=== PATIENT | female | born 1995 | race Two or more races ===

== ENCOUNTER 2017-05-06 21:06 | Emergency (ER) | payer MEDICAID ==
--- NOTE | 2017-05-06 22:10 | ER Document Report ---
ED General - General Chief Complaint: Vag Bleeding, +preg <12wks Stated Complaint: VAGINAL BLEEDING,LOWER ABDOMINAL PAIN Time Seen by Provider: 05/06/17 21:59 - HPI Notes: Patient is a 22-year-old female who presents to the ED approximately 5-1/ 2 weeks complaining of intermittent pelvic cramping and spotting. Patient states that she has been cramping for about a week and began spotting 3 days ago. Patient states that she did have an ectopic in the past. Patient is still eating and drinking without difficulties. She is urinating normally and having normal bowel movements. Patient states that she has not noticed any other vaginal discharge or odor. Patient was evaluated at the health department about a week ago when she found out she is . She denies any drug allergies. Patient denies any other significant past medical history. Denies any headache, fever, neck pain, URI, sore throat, chest pain, palpitations, syncope, cough, shortness of breath, wheeze, dyspnea, nausea/ vomiting/diarrhea, urinary retention, dysuria, hematuria, back pain, loss of control of bowel or bladder, numbness/tingling, saddle anesthesia, muscle paralysis/weakness, or rash. Patient currently has no cramping or abd pain. - Related Data Allergies/Adverse Reactions: No Known Allergies Allergy (Unverified 05/06/17 22:16) Past Medical History - Social History Smoking Status: Never Smoker Family History: Reviewed & Not Pertinent Review of Systems - Review of Systems -: Yes All other systems reviewed and negative Physical Exam - Vital signs Vitals: Temp Pulse Resp BP Pulse Ox 98.7 F 80 20 118/53 L 100 05/06/17 21:14 05/06/17 21:14 05/06/17 21:14 05/06/17 21:14 05/06/17 21:14 - Notes Notes: PHYSICAL EXAMINATION: GENERAL: Well-appearing, well-nourished and in no acute distress. HEAD: Atraumatic, normocephalic. EYES: Pupils equal round and reactive to light, extraocular movements intact, sclera anicteric, conjunctiva are normal. ENT: Nares patent and without discharge. oropharynx clear without exudates. No tonsilar hypertrophy or erythema. Moist mucous membranes. NECK: Normal range of motion, supple without lymphadenopathy LUNGS: Breath sounds clear to auscultation bilaterally and equal. No wheezes rales or rhonchi. HEART: Regular rate and rhythm without murmurs, rubs, gallops. ABDOMEN: Soft, nontender, nondistended abdomen. No guarding, no rebound. No masses appreciated. Normal bowel sounds present. No CVA tenderness bilaterally. Musculoskeletal: FROM to passive/active. Strength 5+/5. Extremities: No cyanosis, clubbing, or edema b/l. Peripheral pulses 2+. Capillary refill less than 3 seconds. NEUROLOGICAL: Normal speech, normal gait. Normal sensory, motor exams PSYCH: Normal mood, normal affect. SKIN: Warm, Dry, normal turgor, no rashes or lesions noted. Course - Re-evaluation Re-evalutation: 05/07/17 01:24 Patient is an afebrile, well-hydrated, 22-year-old female who presents the ED with vaginal bleeding and early . Vitals are acceptable. PE is otherwise unremarkable. CBC, CMP, urinalysis were unremarkable for any acute pathology. See hCG results. Transvaginal OB ultrasound are inconclusive. Currently, I have a low suspicion/risk for acute appendicitis, bowel obstruction , acute cholecystitis, acute cholangitis, perforated diverticulitis, incarcerated hernia, pancreatitis, perforated ulcer, peritonitis, sepsis, pelvic inflammatory disease, tubo-ovarian abscess, ovarian torsion, or other systemic emergent condition at this time. Patient is aware that her condition can change from initial presentation and she needs to monitor symptoms closely and seek medical attention if any acute changes. Conservative measures otherwise for symptoms. Recheck with ED/OBGYN in 2 days. Recheck with your PCM in 3-5 days. Return to the ED with any worsening/concerning symptoms otherwise as reviewed in discharge. Patient is in agreement. Stressed the importance of follow-up in 2 days for recheck of her labs and possibly imaging to further investigate. Risks and benefits understood. - Vital Signs Vital signs: Temp Pulse Resp BP Pulse Ox 98.7 F 80 20 118/53 L 100 05/06/17 21:14 05/06/17 21:14 05/06/17 21:14 05/06/17 21:14 05/06/17 21:14 - Laboratory Result Diagrams: 05/06/17 22:09 05/06/17 22:09 Laboratory results interpreted by me: 05/06/17 05/06/17 22:09 22:09 Glucose 72 L Beta HCG, Quant 804.47 H Ur Leukocyte Esterase TRACE H Urine Ascorbic Acid 40 H Discharge - Discharge Clinical Impression: Vaginal bleeding affecting early Condition: Stable Disposition: HOME, SELF-CARE Instructions: Bleeding During Early ([facility]) Additional Instructions: Recheck with the ED/OBGY in 48 hours for recheck of your labs and possibly imaging Your ultrasound today was inconclusive, most likely due to early , but we could not effectively rule out an ectopic or miscarriage. Maintain adequate fluid intake Tylenol as needed Recheck with the ED/OBGYN in 48 hours. Return to the ED otherwise with any worsening symptoms and/or development of fever, headache, chest pain, palpitations, syncope, shortness of breath, trouble breathing, abdominal pain, n/v/d, blood in stool/urine, loss of control of bowel/bladder, urinary retention, muscle weakness/paralysis, saddle anesthesia, numbness/tingling, worsening vaginal pain/bleeding, or other worsening symptoms that are concerning to you. Referrals: [facility] [Provider Group] - Follow up as needed DARRELL GHOSH MD [[facility]] - 05/08/17
[2017-05-06 22:30] LABS: ABSOLUTE BASOPHILS # (AUTO) 0.1 10^3/uL (0.0-0.2); ABSOLUTE EOSINOPHILS # (AUTO) 0.1 10^3/uL (0.0-0.6); ABSOLUTE LYMPHOCYTES (AUTO) 2.3 10^3/uL (0.5-4.7); ABSOLUTE MONOCYTES (AUTO) 0.7 10^3/uL (0.1-1.4); ABSOLUTE NEUT (AUTO) 4.6 10^3/uL (1.7-8.2); BASOPHILS % (AUTO) 0.8 % (0-2); EOSINOPHILS % (AUTO) 1.2 % (0-6); HEMATOCRIT 37.8 % (36.0-47.0); HEMOGLOBIN 12.7 g/dL (12.0-15.5); LYMPHOCYTES % (AUTO) 29.8 % (13-45); MEAN CORPUSCULAR HEMOGLOBIN 28.8 pg (27.0-33.4); MEAN CORPUSCULAR HGB CONC 33.5 g/dL (32.0-36.0); MEAN CORPUSCULAR VOLUME 86 fl (80-97); MONOCYTES % (AUTO) 8.9 % (3-13); PLATELET COUNT 239 10^3/uL (150-450); RED BLOOD COUNT 4.39 10^6/uL (3.72-5.28); RED CELL DISTRIBUTION WIDTH 13.5 % (11.5-14.0); SEGMENTED NEUTROPHILS % (AUTO) 59.3 % (42-78); TOTAL CELLS COUNTED % (AUTO) 100 %; WHITE BLOOD COUNT 7.7 10^3/uL (4.0-10.5)
[2017-05-06 22:38] LABS: APPEARANCE,URINE SLIGHTLY-CLOUDY; BILIRUBIN,URINE NEGATIVE (NEGATIVE); COLOR,URINE YELLOW; GLUCOSE, URINE NEGATIVE (NEGATIVE); KETONES,URINE NEGATIVE (NEGATIVE); LEUKOCYTE ESTERASE,URINE TRACE (NEGATIVE); NITRITE,URINE NEGATIVE (NEGATIVE); PROTEIN,URINE NEGATIVE (NEGATIVE); URINE SPECIFIC GRAVITY 1.028; UROBILINOGEN,URINE NEGATIVE mg/dL (<2.0)
[2017-05-06 22:44] LABS: ALANINE AMINOTRANSFERASE 22 U/L (9-52); ALBUMIN 4.4 g/dL (3.5-5.0); ALKALINE PHOSPHATASE 65 U/L (38-126); ANION GAP 11 (5-19); ASPARTATE AMINO TRANSFERASE 15 U/L (14-36); BILIRUBIN,DIRECT 0.1 mg/dL (0.0-0.4); BILIRUBIN,TOTAL 0.2 mg/dL (0.2-1.3); BLOOD UREA NITROGEN 14 mg/dL (7-20); CALCIUM 9.9 mg/dL (8.4-10.2); CARBON DIOXIDE 23 mmol/L (22-30); CHLORIDE 106 mmol/L (98-107); GLUCOSE 72 mg/dL (75-110); POTASSIUM 4.3 mmol/L (3.6-5.0); SODIUM 140.2 mmol/L (137-145)
--- NOTE | 2017-05-07 01:17 | RADIOLOGY REPORT (SQ) ---
EXAM DESCRIPTION: U/S OB TRANSVAG W/DOPPLER CLINICAL HISTORY: 22 years, Female, , bleeding COMPARISON: None. TECHNIQUE: Transvaginal LIMITATIONS: None. FINDINGS: No intrauterine confirmed. No definite gestational sac, no pole, no yolk sac, no cardiac activity. 1.5 cm nonspecific hypoechoic fluid within the endometrial cavity; if this is a viable atypical gestational sac, it would correspond with a gestational age of 6w2d. 2.8 cm left ovary appears of normal size, shape, echotexture, and vascularity. Right ovary is not identified. No significant free fluid. 3.2 cm cervical length. IMPRESSION: No intrauterine confirmed. Small nonspecific collection within the endometrial cavity measures 1.5 cm. Differential diagnosis includes occult early gestation, gestational loss, and occult ectopic gestation. Recommend 48-72 hour laboratory/sonographic surveillance, as clinically warranted.
[2017-05-07 01:41] VITALS: BP 107/56
== END 2017-05-07 01:38 | disposition home or self-care (01) ==
LOC: ER 21:06
DX: O46.91 Antepartum hemorrhage, unspecified, first trimester (principal); O26.891 Other specified pregnancy related conditions, first trimester; R10.2 Pelvic and perineal pain; Z3A.01 Less than 8 weeks gestation of pregnancy
CPT/HCPCS: 36415; 76817; 80053; 81001; 84702; 85025; 86900; 86901; 87086; 87088; 93976; 99284

== ENCOUNTER 2017-05-15 15:24 | Emergency (ER) | payer MEDICAID ==
--- NOTE | 2017-05-15 17:16 | ER Document Report ---
ED Medical Screen (RME) - General Chief Complaint: Vaginal Bleeding Stated Complaint: ABDOMINAL PAIN Time Seen by Provider: 05/15/17 17:11 Notes: vag bleeding, 6 wks preg, hx ectopic TRAVEL OUTSIDE OF THE [place] IN LAST 30 DAYS: No - Related Data Allergies/Adverse Reactions: No Known Allergies Allergy (Verified 05/15/17 15:25) Past Medical History - General Last Menstrual Period: - Social History Chew tobacco use (# tins/day): No Frequency of alcohol use: None Drug Abuse: None Renal/ Medical History: Denies: Hx Peritoneal Dialysis Physical Exam - Vital signs Vitals: Temp Pulse Resp BP Pulse Ox 98.7 F 77 17 135/76 H 99 05/15/17 15:48 05/15/17 15:48 05/15/17 15:48 05/15/17 15:48 05/15/17 15:48 Course - Vital Signs Vital signs: Temp Pulse Resp BP Pulse Ox 98.7 F 77 17 135/76 H 99 05/15/17 15:48 05/15/17 15:48 05/15/17 15:48 05/15/17 15:48 05/15/17 15:48
[2017-05-15 17:43] LABS: ABSOLUTE BASOPHILS # (AUTO) 0.1 10^3/uL (0.0-0.2); ABSOLUTE EOSINOPHILS # (AUTO) 0.1 10^3/uL (0.0-0.6); ABSOLUTE MONOCYTES (AUTO) 0.6 10^3/uL (0.1-1.4); ABSOLUTE NEUT (AUTO) 3.5 10^3/uL (1.7-8.2); BASOPHILS % (AUTO) 0.9 % (0-2); HEMATOCRIT 37.1 % (36.0-47.0); HEMOGLOBIN 12.6 g/dL (12.0-15.5); LYMPHOCYTES % (AUTO) 32.2 % (13-45); MEAN CORPUSCULAR HGB CONC 34.1 g/dL (32.0-36.0); MEAN CORPUSCULAR VOLUME 85 fl (80-97); MONOCYTES % (AUTO) 9.3 % (3-13); PLATELET COUNT 223 10^3/uL (150-450); RED BLOOD COUNT 4.36 10^6/uL (3.72-5.28); RED CELL DISTRIBUTION WIDTH 13.9 % (11.5-14.0); SEGMENTED NEUTROPHILS % (AUTO) 56.6 % (42-78); TOTAL CELLS COUNTED % (AUTO) 100 %; WHITE BLOOD COUNT 6.1 10^3/uL (4.0-10.5)
[2017-05-15 17:48] LABS: APPEARANCE,URINE SLIGHTLY-CLOUDY; BILIRUBIN,URINE NEGATIVE (NEGATIVE); COLOR,URINE YELLOW; GLUCOSE, URINE NEGATIVE (NEGATIVE); KETONES,URINE NEGATIVE (NEGATIVE); LEUKOCYTE ESTERASE,URINE NEGATIVE (NEGATIVE); NITRITE,URINE NEGATIVE (NEGATIVE); PROTEIN,URINE NEGATIVE (NEGATIVE); URINE SPECIFIC GRAVITY 1.019; UROBILINOGEN,URINE NEGATIVE mg/dL (<2.0)
[2017-05-15 18:02] LABS: ALANINE AMINOTRANSFERASE 24 U/L (9-52); ALBUMIN 3.9 g/dL (3.5-5.0); ALKALINE PHOSPHATASE 60 U/L (38-126); ANION GAP 8 (5-19); ASPARTATE AMINO TRANSFERASE 15 U/L (14-36); BILIRUBIN,DIRECT 0.3 mg/dL (0.0-0.4); BILIRUBIN,TOTAL 0.3 mg/dL (0.2-1.3); BLOOD UREA NITROGEN 12 mg/dL (7-20); CALCIUM 9.4 mg/dL (8.4-10.2); CARBON DIOXIDE 22 mmol/L (22-30); CHLORIDE 108 mmol/L (98-107); GLUCOSE 79 mg/dL (75-110); POTASSIUM 4.6 mmol/L (3.6-5.0); SODIUM 138.3 mmol/L (137-145); TOTAL PROTEIN 6.9 g/dL (6.3-8.2)
--- NOTE | 2017-05-15 18:50 | ER Document Report ---
ED GI/ - General Chief Complaint: Vaginal Bleeding Stated Complaint: ABDOMINAL PAIN Time Seen by Provider: 05/15/17 17:11 Mode of Arrival: Ambulatory Information source: Patient TRAVEL OUTSIDE OF THE [place] IN LAST 30 DAYS: No - HPI Patient complains to provider of: Abdominal pain, , Vaginal bleeding Onset: Last week Notes: 05/15/17 18:48 The patient is here with complaints of right-sided abdominal pain. The patient is approximately 6 weeks . She is a G4, P2 with 1 prior ectopic which ruptured and required surgical intervention. She states that she has seen an LIGHTNING ROD ERECTOR for this , she had an ultrasound which showed no intrauterine or extrauterine at that time. States that she has been having some abdominal cramping as well as vaginal bleeding for the last few weeks but it is gotten much worse over the last few days. She has felt hot and been sweating, but denies any actual fever. She has had nausea, but denies any vomiting or diarrhea. She denies any dysuria or hematuria. She still has her appendix. She denies any chest pain or shortness of breath. She denies any flank pain. She denies any other complaints at this time. - Related Data Allergies/Adverse Reactions: No Known Allergies Allergy (Verified 05/15/17 15:25) Past Medical History - General Last Menstrual Period: - Social History Smoking Status: Never Smoker Chew tobacco use (# tins/day): No Frequency of alcohol use: None Drug Abuse: None Family History: Reviewed & Not Pertinent Patient has suicidal ideation: No Patient has homicidal ideation: No Renal/ Medical History: Denies: Hx Peritoneal Dialysis Review of Systems - Review of Systems -: Yes All other systems reviewed and negative Physical Exam - Vital signs Vitals: Temp Pulse Resp BP Pulse Ox 98.7 F 77 17 135/76 H 99 05/15/17 15:48 05/15/17 15:48 05/15/17 15:48 05/15/17 15:48 05/15/17 15:48 - Notes Notes: GENERAL: alert, cooperative, nontoxic, no distress. HEAD: normocephalic, atraumatic EYES: conjunctiva pink without discharge, no external redness or swelling. EARS: no external swelling, no external redness NOSE: atraumatic, no external swelling MOUTH/THROAT: mucous membranes moist and pink, posterior pharynx without erythema, swelling, exudate. No trismus or drooling. NECK: soft, supple, full range of motion, no meningismus. CHEST: no distress, lungs clear and equal throughout. No wheezing, rales, rhonchi. CARDIAC: regular rate and rhythm, no murmur, normal capillary refill, normal pulses. No peripheral edema noted. ABDOMEN: Soft, tenderness to palpation of the right lower quadrant. No rebound tenderness or guarding. No mass. BACK: full range of motion, no CVA tenderness. EXTREMITIES: full range of motion of all extremities. No redness, no swelling. NEURO: alert and oriented x 3, no focal deficits, full range of motion of all extremities. PYSCH: appropriate mood, affect. Patient is cooperative. SKIN: pink, warm, dry, no rash. : Performed with female clinical data management director at the bedside. No external lesions. Cervix is closed. There is no blood within the vaginal vault. There is a small amount of white vaginal discharge present. No cervical motion tenderness. Minimal right and left-sided adnexal tenderness on bimanual exam with no obvious mass. Course - Re-evaluation Re-evalutation: 05/15/17 20:02 Pelvic ultrasound shows an intrauterine . The right adnexa is unremarkable. Patient continues to have right-sided abdominal tenderness on exam. I discussed the case with the radiologist, he recommends an abdominal ultrasound to start. I have discussed the case with Dr. Whitlock of surgery, he will come to evaluate the patient and also recommended the abdominal ultrasound. 05/15/17 21:35 Patient was seen and evaluated by Dr. Whitlock of surgery. The patient's ultrasound of her abdomen shows no obvious signs of acute appendicitis. She has normal white blood cell count. Dr. Whitlock states that the patient can be discharged home at this time with a recheck tomorrow if she continues to have pain. She should return sooner if her pain gets worse, she develops high fever , persistent vomiting, or has any further concerns. Quantitative hCG is up to 17,000. Ultrasound of the pelvis shows an intrauterine yolk sac with no pole consistent with early . No signs of ovarian torsion, ovarian cyst or ectopic . Pelvic exam was unremarkable. Remainder of her labs are unremarkable. At this point the patient will be discharged home with instructions to follow-up with her LIGHTNING ROD ERECTOR regarding her . Return to the emergency department tomorrow for repeat exam if she continues to have right lower quadrant pain as it is possible that she could have an early appendicitis that we are not able to evaluate on ultrasound. She should return sooner if she develops worsening pain , or high fever. The patient's emergency department workup and current diagnosis were explained to the patient and or family. Follow-up instructions were provided. Medications if prescribed were discussed. Instructions for when to return to the emergency department including specific worrisome symptoms were discussed with the patient and/or family. The patient is noted to have elevated blood pressure during today's emergency department visit. The patient was informed of this finding. The patient was instructed that this may be related to pre-hypertension and requires further evaluation with a primary care provider. The patient has no hypertensive symptoms at this time. - Vital Signs Vital signs: Temp Pulse Resp BP Pulse Ox 98.7 F 77 17 135/76 H 99 05/15/17 15:48 05/15/17 15:48 05/15/17 15:48 05/15/17 15:48 05/15/17 15:48 - Laboratory Result Diagrams: 05/15/17 17:29 05/15/17 17:29 Laboratory results interpreted by me: 05/15/17 05/15/17 17:29 17:29 Chloride 108 H Beta HCG, Quant 71239.00 H Urine Ascorbic Acid 40 H - Diagnostic Test Radiology reviewed: Image reviewed, Reports reviewed - Transvaginal ultrasound shows intrauterine with yolk sac present with no pole consistent with early . Adnexa unremarkable. Abdominal ultrasound shows no signs of acute appendicitis. Discharge - Discharge Clinical Impression: Abdominal pain Qualifiers: Abdominal location: right lower quadrant Qualified Code(s): R10.31 - Right lower quadrant pain Qualifiers: Weeks of gestation: less than 8 weeks Qualified Code(s): Z3A.01 - Less than 8 weeks gestation of Condition: Stable Disposition: HOME, SELF-CARE Instructions: Abdominal Pain ([facility]), Observation for Appendicitis ([facility]), Pelvic Pain in ([facility]) Additional Instructions: Follow-up with your LIGHTNING ROD ERECTOR at the next available appointment. Return to the emergency department tomorrow for reevaluation if you continue to have right lower quadrant abdominal pain. Follow-up sooner for worsening pain, high fever , persistent vomiting, or for any further concerns. Your blood pressure was elevated during today's visit. Have this rechecked with your doctor. Forms: Elevated Blood Pressure, Smoking Cessation Education Referrals: ANAND BEVERLY MD [Primary Care Provider] - Follow up as needed
--- NOTE | 2017-05-15 19:44 | RADIOLOGY REPORT (SQ) ---
EXAM DESCRIPTION: U/S OB TRANSVAGINAL W/O DOP COMPLETED DATE/TIME: 05/15/2017 7:21 pm REASON FOR STUDY: pain/bleeding COMPARISON: None. TECHNIQUE: Transvaginal static and realtime grayscale images acquired of the pelvis. Additional melissa cted spectral and color Doppler images recorded. All images stored on PACs. [id number] LIMITATIONS: None. FINDINGS: FETUS: Living intrauterine . EGA: 6 weeks 1 day, based upon gestational sac size. pole is not identified. heart chi on is not seen. Questionable yolk sac present. [place]: 01/07/2018 FHR: Not seen beats per minute. SUBCHORIONIC BLEED: No SIZE OF BLEED: Not applicable. UTERUS: 10 x 5.5 x 5.5 cm. No masses. CERVICAL LENGTH: 3.1 cm. Closed. RIGHT ADNEXA: Normal ovary with normal vascular flow. No adnexal free fluid. No adnexal masses. LEFT ADNEXA: Normal ovary with normal vascular flow. No adnexal free fluid. No adnexal masses. FREE FLUID: None. OTHER: No other significant finding. IMPRESSION: Possible early gestation of 6 weeks 1 day. pole was not seen. Follow-up as clini lexa indicated. Trimester of : First - 0 to 13 weeks. TECHNICAL DOCUMENTATION: JOB ID: [id number] [employer]- All Rights Reserved Reading location - IP/workstation name: [email or web address]
[2017-05-15 19:59] LABS: BACTERIA (WET MOUNT) 4+ BACTERIA SEEN; RBCS (WET MOUNT) FEW RBCS SEEN; T.VAGINALIS (WET MOUNT) NO TRICHOMONAS SEEN; WBCS (WET MOUNT) 1+ WBCS SEEN; YEAST (WET MOUNT) NO YEAST SEEN
[2017-05-15] MEDS ORDERED: NORMAL SALINE 1000 ML 1,000 ML IV ONE (21:06)
--- NOTE | 2017-05-15 21:19 | RADIOLOGY REPORT (SQ) ---
EXAM DESCRIPTION: U/S ABDOMEN LIMITED W/O DOP COMPLETED DATE/TIME: 05/15/2017 8:56 pm REASON FOR STUDY: RLQ PAIN COMPARISON: None. TECHNIQUE: Dynamic and static grayscale images acquired of the abdomen and recorded on PACS. Additio nal selected color Doppler and spectral images recorded. LIMITATIONS: None. FINDINGS: RIGHT LOWER QUADRANT: Sonographic imaging shows no evidence of a dilated appendix or suri appendiceal abscess. Normal peristalsing bowel was seen. There was no significant discomfort when c ompression was used. The right kidney was normal and measured 9.7 cm. The right ovary was unremarka ble and measured 2.7 x 2.5 x 2 cm. IMPRESSION: NORMAL RIGHT LOWER QUADRANT ULTRASOUND. THERE IS NO EVIDENCE OF APPENDICITIS. TECHNICAL DOCUMENTATION: JOB ID: [id number] [employer]- All Rights Reserved Reading location - IP/workstation name: [email or web address]
[2017-05-15 21:21] LABS: CHLAM PCR NOT DETECTED (NOT DETECT); GON PCR NOT DETECTED (NOT DETECT)
--- NOTE | 2017-05-15 21:36 | PDOC CONSULTATION ---
History of Present Illness Admission Date/PCP: ANAND BEVERLY MD Patient complains of: RLQ pains History of Present Illness: ALEJANDRO HERNANDEZ is a 22 year old female 6 weeks c/o RLQ painssince yesterday evening which persisted today associated with nausea. Patient noted to be eating without discomfort. Past Medical History Medical History: None Past Surgical History Past Surgical History: Reports: None Social History Smoking Status: Never Smoker Family History Family History: Reviewed & Not Pertinent Parental Family History Reviewed: No Children Family History Reviewed: No Sibling(s) Family History Reviewed.: No Medication/Allergy Allergies/Adverse Reactions: No Known Allergies Allergy (Verified 05/15/17 15:25) Review of Systems Constitutional: PRESENT: other - no fever/chills Eyes: PRESENT: other - no viz/hearing changes Cardiovascular: PRESENT: other - no chest pains Respiratory: PRESENT: other - no sore throat Gastrointestinal: PRESENT: abdominal pain, nausea Genitourinary: PRESENT: other - no dysuria Neurological: PRESENT: other - no dizziness Hematologic/Lymphatic: PRESENT: other - no easy bruising Physical Exam Vital Signs: Temp Pulse Resp BP Pulse Ox 98.7 F 77 17 135/76 H 99 05/15/17 15:48 05/15/17 15:48 05/15/17 15:48 05/15/17 15:48 05/15/17 15:48 Intake & Output 05/14/17 05/15/17 05/16/17 06:59 06:59 06:59 Weight 66.6 kg General appearance: PRESENT: no acute distress Exam: Tenderness on direct palpation no rebound Head exam: PRESENT: atraumatic Eye exam: PRESENT: conjunctiva pink Mouth exam: PRESENT: moist Neck exam: PRESENT: full ROM Respiratory exam: PRESENT: clear to auscultation sharan Cardiovascular exam: PRESENT: RRR Pulses: PRESENT: normal radial pulses Vascular exam: PRESENT: normal capillary refill GI/Abdominal exam: PRESENT: soft, tenderness - RLQ on deep palpation Rectal exam: PRESENT: deferred Extremities exam: PRESENT: full ROM Musculoskeletal exam: PRESENT: ambulatory Neurological exam: PRESENT: alert, oriented to person, oriented to place, oriented to time, oriented to situation Psychiatric exam: PRESENT: appropriate affect Skin exam: PRESENT: normal color, warm Results Laboratory Results: 05/15/17 17:29 05/15/17 17:29 05/15/1718 05/15/17 17:29 17:29 17:29 WBC 6.1 RBC 4.36 Hgb 12.6 Hct 37.1 MCV 85 MCH 29.0 MCHC 34.1 RDW 13.9 Plt Count 223 Seg Neutrophils % 56.6 Lymphocytes % 32.2 Monocytes % 9.3 Eosinophils % 1.0 Basophils % 0.9 Absolute Neutrophils 3.5 Absolute Lymphocytes 2.0 Absolute Monocytes 0.6 Absolute Eosinophils 0.1 Absolute Basophils 0.1 Sodium 138.3 Potassium 4.6 Chloride 108 H Carbon Dioxide 22 Anion Gap 8 BUN 12 Creatinine 0.74 Est GFR ( Amer) > 60 Est GFR (Non-Af Amer) > 60 Glucose 79 Calcium 9.4 Total Bilirubin 0.3 AST 15 ALT 24 Alkaline Phosphatase 60 Total Protein 6.9 Albumin 3.9 Urine Color YELLOW Urine Appearance SLIGHTLY-CLOUDY Urine pH 6.0 Ur Specific [place] 1.019 Urine Protein NEGATIVE Urine Glucose (UA) NEGATIVE Urine Ketones NEGATIVE Urine Blood NEGATIVE Urine Nitrite NEGATIVE Ur Leukocyte Esterase NEGATIVE Urine WBC (Auto) 3 Urine RBC (Auto) 2 Impressions: Obstetrics Ultrasound 05/15/17 17:14 IMPRESSION: Possible early gestation of 6 weeks 1 day. pole was not seen. Follow-up as clinically indicated. Trimester of : First - 0 to 13 weeks. Abdomen Ultrasound 05/15/17 20:01 IMPRESSION: NORMAL RIGHT LOWER QUADRANT ULTRASOUND. THERE IS NO EVIDENCE OF APPENDICITIS. Assessment & Plan - Diagnosis (1) 6 weeks uterine Is this a current diagnosis for this admission?: Yes (2) Right lower quadrant abdominal pain Is this a current diagnosis for this admission?: Yes - Time Time Spent: 30 to 50 Minutes - Plan Summary Plan Summary: Ultrasound showed no acute appendicitis OK to discharge Follow up with OB
[2017-05-15 22:08] VITALS: BP 111/56
== END 2017-05-15 22:08 | disposition home or self-care (01) ==
LOC: ER 15:24
DX: O46.91 Antepartum hemorrhage, unspecified, first trimester (principal); R10.31 Right lower quadrant pain; Z3A.01 Less than 8 weeks gestation of pregnancy
CPT/HCPCS: 99284; 36415; 87210; 84702; 85025; 80053; 81001; 87491; 87591; 76817; 76705; J7030